=== PATIENT | male | born 2000 ===

== ENCOUNTER 2022-04-06 10:28 | Day surgery (SDC) | payer BC, SELFPAY ==
[~2022-04-06 10:28] MED LIST: Dexamethasone 20 MG/5 ML VIAL ONE; Ondansetron PF 4 MG/2 ML Vial ONE; PROPOFOL 200 MG/20 ML VIAL ONE; Succinylcholine 200 MG/10 ml SYRINGE FS ONE
[2022-04-06] MEDS ORDERED: Ketorolac Tromethamine 30 MG/ML VIAL IVP PRN (10:46)
[2022-04-06] MEDS ORDERED: Promethazine HCl 25 MG/ML VIAL IVPB PRN (10:46)
[2022-04-06] MEDS ORDERED: Promethazine HCl 25 MG/ML VIAL IM PRN (10:46)
[2022-04-06] MEDS ORDERED: Fentanyl 100 MCG/2 ML VIAL ONE (11:15)
== END 2022-04-06 13:02 | disposition home or self-care (01) ==
LOC: SDC 10:28
PROVIDERS: ATTEND Internal Medicine
PROC: 0DB38ZX Excision of Lower Esophagus, Via Natural or Artificial Opening Endoscopic, Diagnostic (ICD-10-PCS; principal; 2022-04-06)
PROC: 0DC38ZZ Extirpation of Matter from Lower Esophagus, Via Natural or Artificial Opening Endoscopic (ICD-10-PCS; principal; 2022-04-06)
PROC: 0DB18ZX Excision of Upper Esophagus, Via Natural or Artificial Opening Endoscopic, Diagnostic (ICD-10-PCS; principal; 2022-04-06)
PROC: 0D738ZZ Dilation of Lower Esophagus, Via Natural or Artificial Opening Endoscopic (ICD-10-PCS; principal; 2022-04-06)
DX: T18.128A Food in esophagus causing other injury, initial encounter (principal); K22.2 Esophageal obstruction; K20.0 Eosinophilic esophagitis; K22.81 Esophageal polyp; J45.909 Unspecified asthma, uncomplicated; X58.XXXA Exposure to other specified factors, initial encounter
CPT/HCPCS: 88305; J1100; J2405; J2704; J3010